=== PATIENT | male | born 1995 | race African-American/Black ===

== ENCOUNTER 2017-01-03 19:52 | Emergency (ER) | payer BC ==
[~2017-01-03] VITALS: Ht 177.8 cm; Wt 129.6 kg
[~2017-01-03 19:52] MED LIST: BUPROPION XL150 MG PO
[2017-01-03 22:53] VITALS: BP 118/74
== END 2017-01-03 22:55 | disposition home or self-care (01) ==
LOC: EME → EDBD 19:52 → EME 22:55
DX: R55 Syncope and collapse (principal); E86.0 Dehydration; F32.9 Major depressive disorder, single episode, unspecified; F17.200 Nicotine dependence, unspecified, uncomplicated; Z91.040 Latex allergy status
CPT/HCPCS: 71020; 93005; 99281; 99284; J7030